=== PATIENT | female | born 1960 | race Caucasian/White ===

== ENCOUNTER 2016-07-27 16:01 | Emergency (ER) | payer MEDICAID ==
[2016-07-27 16:02] VITALS: BMI 48.2
[2016-07-27 16:24] VITALS: BP 152/90; PULSE 84; RESP 18; TEMP 98.2; O2SAT 99
[2016-07-27] MEDS ORDERED: Naproxen 550 mg Tab PO STA (17:10)
[2016-07-27] MEDS ORDERED: Naproxen 550 mg Tab PO ONE (17:26)
--- NOTE | 2016-07-27 17:34 | C.PDOC ---
History Of Present Illness 56 year old female presents to the ED c/oright knee Time Seen by Provider: 07/27/16 16:33 Chief Complaint (Nursing): Lower Extremity Problem/Injury Past Medical History Vital Signs: Last Vital Signs Temp 98.2 F 07/27/16 16:21 Pulse 84 07/27/16 16:21 Resp 18 07/27/16 16:21 BP 152/90 H 07/27/16 16:21 Pulse Ox 99 07/27/16 16:21 - Medical History PMH: Arthritis, Asthma Surgical History: Cholecystectomy, Tonsillectomy Family History: States: Unknown Family Hx - Social History Hx Alcohol Use: No Hx Substance Use: No - Immunization History Hx Tetanus Toxoid Vaccination: No Hx Influenza Vaccination: No Hx Pneumococcal Vaccination: No ED Course And Treatment O2 Sat by Pulse Oximetry: 99
--- NOTE | 2016-07-27 17:34 | C.PDOC ---
History Of Present Illness 56 year old female presents to the ED c/o right knee pain for "years". Patient notes having an MRI done 3 years prior and was told she needed knee surgery but denied the surgery. Patient notes "locking" and "twisting" in the knee. Patient denies new trauma, fever, chills, vomiting, weakness or numbness of the extremities, or any other extremities. Time Seen by Provider: 07/27/16 16:33 Chief Complaint (Nursing): Lower Extremity Problem/Injury History Per: Patient History/Exam Limitations: no limitations Onset/Duration Of Symptoms: Days ("years") Current Symptoms Are (Timing): Still Present Severity: Mild Past Medical History Reviewed: Historical Data, Nursing Documentation, Vital Signs Vital Signs: Last Vital Signs Temp 98.2 F 07/27/16 16:21 Pulse 84 07/27/16 16:21 Resp 18 07/27/16 16:21 BP 152/90 H 07/27/16 16:21 Pulse Ox 99 07/27/16 17:50 - Medical History PMH: Arthritis, Asthma Surgical History: Cholecystectomy, Tonsillectomy Family History: States: Unknown Family Hx - Social History Hx Alcohol Use: No Hx Substance Use: No - Immunization History Hx Tetanus Toxoid Vaccination: No Hx Influenza Vaccination: No Hx Pneumococcal Vaccination: No Review Of Systems Except As Marked, All Systems Reviewed And Found Negative. Constitutional: Negative for: Fever, Chills, Other (New trauma) Gastrointestinal: Negative for: Vomiting Musculoskeletal: Positive for: Leg Pain (Right knee pain) Neurological: Negative for: Weakness (Extremities), Numbness (Extremities) Physical Exam - Physical Exam Appears: Non-toxic, No Acute Distress Skin: Warm, Dry Head: Atraumatic, Normacephalic Eye(s): bilateral: Normal Inspection, EOMI Nose: Normal Oral Mucosa: Moist Chest: Symmetrical Respiratory: No Accessory Muscle Use Extremity: Normal ROM, Tenderness (Medial aspect of the right knee), No Pedal Edema, No Calf Tenderness, Swelling (mild swelling) Pulses: Left Dorsalis Pedis: Normal, Right Dorsalis Pedis: Normal Neurological/Psych: Oriented x3, Normal Cognition, Normal Motor, Normal Sensation Gait: Steady ED Course And Treatment O2 Sat by Pulse Oximetry: 99 (Room air) Pulse Ox Interpretation: Normal - Other Rad X-Ray right knee X-Ray: Interpreted by Me, Viewed By Me Interpretation: (+) DJD, no fx or dislocation Progress Note: Plans:X-Ray of the right knee, Anaprox, Reassess and disposition. Knee brace applied by hydrometeorological technician. On reassessment, patient is resting comfortably, with improvement of knee pain, no fever, no numbness, no weakness. Patient is ambulatory in the emergency department with no signs of discomfort. Patient was advised to follow up with their physician in 1-2 days. Disposition - Disposition Referrals: Panchito Dean MD [Staff Provider] - Disposition: HOME/ ROUTINE Disposition Time: 17:32 Condition: STABLE Additional Instructions: Follow up with primary medical doctor in 1-3 days without fail for further evaluation. Take medications as prescribed. Return to the emergency department at any time if symptoms persist or worsen. Prescriptions: Naproxen [Naprosyn] 1 tab PO BID PRN #20 tab PRN Reason: Pain Instructions: Knee Pain (ED) - Clinical Impression Clinical Impression: Knee pain, Osteoarthritis - Scribe Statement The provider has reviewed the documentation as recorded by the Scribminnie merritt All medical record entries made by the Scribe were at my direction and personally dictated by me. I have reviewed the chart and agree that the record accurately reflects my personal performance of the history, physical exam, medical decision making, and the department course for this patient. I have also personally directed, reviewed, and agree with the discharge instructions and disposition.
--- NOTE | 2016-07-27 18:12 | RAD ---
Right knee three views History: Pain. Comparison: None available. Findings: Severe tricompartmental joint space narrowing with subchondral sclerosis and osteophytosis. Small suprapatellar joint effusion. Mild cortical angulation and sclerosis at the lateral cortex at the level of the distal medullary cavity of the femur, nonspecific. Impression: Severe tricompartmental joint space narrowing with subchondral sclerosis and osteophytosis. Small suprapatellar joint effusion. Mild cortical angulation and sclerosis at the lateral cortex at the level of the distal medullary cavity of the femur, nonspecific. If pain persists, consider MRI.
== END 2016-07-27 17:40 | disposition home or self-care (01) ==
LOC: C.ER 16:01
DX: M25.561 Pain in right knee (principal); M17.11 Unilateral primary osteoarthritis, right knee